=== PATIENT | male | born 1975 | race African-American/Black ===

== ENCOUNTER 2019-08-26 12:11 | Inpatient (IN) | payer BC ==
[~2019-08-26] VITALS: Ht 177.8 cm; Wt 103.0 kg
--- NOTE | 2019-08-26 12:39 | NUR ---
PT WALKED TO ROOM 8 WITH CO CP SUDDENTLY HAPPEND WHILE IN [facility]. PT WAS A/OX3. SPEAKS FULL SENTENCES. FOLLOWS COMMAND, DENEIS OROPEZA AND DIZZINESS. NO SOB. BREATHING EVEN. ABD ROUD AND SOFT. NO FURTHER CO. DR. ANDERSEN IS BEDSIDE TO EXAMINE PT.
[2019-08-26 13:24] LABS: BASOPHIL % 0.7 % (0-2); PLATELET COUNT 359 x10^3mcL (130-400)
[2019-08-26 13:25] LABS: RED CELL DISTRIBUTION WIDTH 11.4 % (11.5-14.5)
[2019-08-26 13:27] LABS: CALCIUM 9.2 mg/dL (8.5-10.1); CARBON DIOXIDE 31.6 mmol/L (21-32); CHLORIDE SERUM 101 mmol/L (98-107); CREATININE SERUM 1.3 mg/dL (0.7-1.3); GFR1 > 60 mL/min; GLUCOSE SERUM 277 mg/dL (74-106); POTASSIUM SERUM 4.3 mmol/L (3.5-5.1); SODIUM SERUM 135 mmol/L (136-145)
[2019-08-26 13:31] LABS: ALBUMIN 3.7 g/dL (3.4-5.0); ALKALINE PHOSPHATASE 81 U/L (46-116); ALT/SGPT 26 U/L (16-63); AST/SGOT 9 U/L (15-37); BILIRUBIN TOTAL 0.6 mg/dL (0.20-1.00); TOTAL PROTEIN, SERUM 7.9 g/dL (6.4-8.2)
[2019-08-26 13:58] LABS: CHOLESTEROL/HDL RATIO 3.1
--- NOTE | 2019-08-26 15:27 | NUR ---
PT WAS PEACEFULLY RESTING ON BED, CO PAIN DECREASED.
--- NOTE | 2019-08-26 16:03 | NUR ---
DISCHARGE TO HOME. PATIENT ALERT, ORIENTED TO PERSON, PLACE AND TIME. AFTERCARE INSTRUCTIONS GIVEN AND DISCUSSED WITH PATIENT. PATIENT AMBULATORY TO HOME, DENIES PAIN, NO ACUTE DISTRESS NOTED.
--- NOTE | 2019-08-26 16:30 | NUR ---
PT ADMITED TO TELE . REPORT WAS CALLED AND GIVEN TO JONO HOWELL.
--- NOTE | 2019-08-26 16:40 | NUR ---
PATIENT BROUGHT UP TO FLOOR VIA [facility]. DR SILVEIRA IN TO SEE AND ASSESS PATIENT. DISCUSSED PLAN OF CARE. PT DOES NOT WANT TO STAY PAST 0600 TOMORROW. PT TO HAVE CONSULT WITH DR PLATA. ALL QUESTIONS AND CONCERNS ADDRESSED.
--- NOTE | 2019-08-26 16:42 | NUR ---
RECEIVED PT VIA [employer] FROM E/D, ACCOMPANIED BY RN, TRANSPORTER, AND PT'S , BOO GONSALES. 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 AMBULATORY, NO GAIT OR BALANCE IMPAIRMENT NOTED WHEN WALKING FROM [facility] TO BED. ON TELE # 7, NSR, HR 81, DENIES CHEST PAIN OR DISCOMFORT. SCD BY BEDSIDE. NO ACUTE RESPIRATORY DISTRESS NOTED. IV SITE LH 20G, CDI. ORIENTED PT TO ROOM, BED CONTROLS, CALL LIGHT SYSTEM. SIDE RAILS UP X 2, BED IN LOW POSITION. WILL ENDORSE TO [place].
--- NOTE | 2019-08-26 17:15 | NUR ---
DR PLATA IN TO SEE AND ASSESS PATIENT AND DISCUSS PLAN OF CARE.
[2019-08-26 17:45] VITALS: BP 131/76
--- NOTE | 2019-08-26 19:27 | NUR ---
REPORT GIVEN TO QASIM HOWELL. PATIENT RESTING COMFORTABLY IN BED WITH FAMILY AT BEDSIDE. ALL NEEDS MET. ALL QUESTIONS AND CONCERNS ADDRESSED. ALL CARES ENDORSED.
--- NOTE | 2019-08-26 19:38 | NUR ---
RECEIVED PATIENT IN BED AWAKE, ALERT AND ORIENTED WITH NO C/O CHEST DISCOMFORT AT THIS TIME. BREATHING EASY AND NONLABOR SATTING AT 95% RA. TELE#7 NSR ON MONITOR. ABDOMEN ROUND AND NONTENDER WITH ACTIVE BS. IV HEPLOCK TO LH, FLUSHED WITH NS. WILL CONTINUE TO MONITOR CALL LIGHT WITHIN REACH. FAMILY MEMBERS AT BEDSIDE.
[2019-08-26 20:50] VITALS: BP 109/63
--- NOTE | 2019-08-26 23:25 | NUR ---
APPEAR TO BE SLEEPING THIS TIME BREATHING EASYA ND NONLABOR. WILL CONTINUE TO MONITOR.
--- NOTE | 2019-08-27 05:21 | NUR ---
SLEPT AT LONG INTERVALS, DENIES CHEST DISCOMFORT THE ENTIRE SHIFT. ALL NEEDS ATTENDED.
[2019-08-27 05:22] VITALS: BP 111/75
--- NOTE | 2019-08-27 08:00 | NUR ---
ALERT AND ORIENTED. BREATHING FREELY ON RA. DENIES ANY PAIN. INDEPENDENT W ADL'S. VSS. PT WANTS TO GO HOME. SAYS HE HAS MUCH BUSINESS TO ATTEND TO. SL TO LEFT HAND. CALL LIGHT WITHIN REACH.
[2019-08-27] MEDS ORDERED: GLU850 PO (08:33)
[2019-08-27 09:27] VITALS: BP 149/76
[2019-08-27 09:49] LABS: CHOLESTEROL/HDL RATIO 3.4
[2019-08-27 10:01] VITALS: BP 149/76
--- NOTE | 2019-08-27 10:28 | NUR ---
DC'D TO HOME. PRESCRIPTION GIVEN FOR GLUCOPHAGE 850M MG PO BID. IV DC'D INTACT. TELE # 7 RETURNED TO TELE STATION. F/U VENANCIO MADE FOR 09/07/2019. ALL DC INSTRUCTIONS REVIEWED WITH AND SIGNED BY PT.
== END 2019-08-27 10:35 | disposition home or self-care (01) | DRG 311 ==
LOC: ED 12:11 → DU 15:40
PROVIDERS: Emergency Medicine; ADMIT Internal Medicine Pulmonary Disease
DX: I24.9 Acute ischemic heart disease, unspecified (principal); E11.65 Type 2 diabetes mellitus with hyperglycemia; G47.33 Obstructive sleep apnea (adult) (pediatric); Z79.82 Long term (current) use of aspirin; Z79.84 Long term (current) use of oral hypoglycemic drugs; Z82.49 Family history of ischemic heart disease and other diseases of the circulatory system; Z83.3 Family history of diabetes mellitus; Z79.899 Other long term (current) drug therapy
CPT/HCPCS: 82962; 83880; 90658; 90732; G0378; J1650; Q0092